=== PATIENT | male | born 1995 | race African-American/Black ===

== ENCOUNTER 2019-04-03 19:46 | Emergency (ER) | payer SELFPAY ==
[~2019-04-03] VITALS: Ht 185.4 cm; Wt 88.5 kg
[2019-04-03 20:01] VITALS: BP 142/81
--- NOTE | 2019-04-03 20:11 | NUR ---
PER ER PA, WILL HOLD STREP SWAB
== END 2019-04-03 21:42 | disposition home or self-care (01) ==
LOC: ER 19:46
DX: J30.9 Allergic rhinitis, unspecified (principal); Z98.890 Other specified postprocedural states; Z60.2 Problems related to living alone
CPT/HCPCS: 70360-TC

== ENCOUNTER → 2022-03-08 | Emergency (ER) | payer OTHER ==
[~2022-03-08] VITALS: Ht 182.9 cm; Wt 93.0 kg
[~2022-03-08] MED LIST: CARI350T PO
--- NOTE | 2022-03-08 14:58 | NUR ---
SEEN AND EXAMINED BY .
[2022-03-08 15:21] LABS: BASOPHILS % (AUTO) 0.8 % (0.0-2.0); HEMATOCRIT 46 % (39-51); HEMOGLOBIN 15.3 g/dL (13.5-17.5); LYMPHOCYTES # (AUTO) 1.6 K/uL (0.8-4.8); MEAN CORPUSCULAR HGB CONC 33 g/dl (31.0-36.0); MEAN CORPUSCULAR VOLUME 94 fL (80-96); MONOCYTES # (AUTO) 0.4 K/uL (0.1-1.30); MONOCYTES % (AUTO) 8.7 % (2.0-12.0); NEUTROPHILS # (AUTO) 2.5 K/uL (1.8-8.9); NEUTROPHILS % (AUTO) 54.5 % (43.0-81.0); PLATELET COUNT (AUTO) 184 K/uL (150-450); RED BLOOD CELL COUNT(AUTO) 4.88 MIL/uL (4.5-6.0); WHITE BLOOD COUNT (AUTO) 4.7 K/uL (4.3-11.0)
[2022-03-08 16:03] LABS: CALCIUM, SERUM 8.8 mg/dL (8.5-10.1); CARBON DIOXIDE 28 mmol/L (21-32); CHLORIDE 106 mmol/L (98-107); CREATININE 1.3 mg/dL (0.6-1.3); GLUCOSE 84 mg/dL (74-106); POTASSIUM 4.4 mmol/L (3.5-5.1); SODIUM SERUM 140 mmol/L (136-145); UREA NITROGEN, BLOOD 17 mg/dL (7-18)
[2022-03-08 17:50] VITALS: BP 134/80
--- NOTE | 2022-03-08 17:50 | NUR ---
Patient discharged to home in stable condition. RX,Written and verbal after care instructions given. Patient verbalizes understanding of instruction.IV removed. Catheter intact and site benign. Pressure and 4x4 applied to site. No bleeding noted.
== END | disposition home or self-care (01) ==
LOC: ER 14:40
DX: R07.89 Other chest pain (principal); Z79.899 Other long term (current) drug therapy
CPT/HCPCS: 36415; 71045-TC; 80048-TC; 84484-TC; 85025-TC

== ENCOUNTER 2025-09-01 23:28 | Emergency (ER) | payer OTHER | END 2025-09-02 01:05 | disposition left against medical advice (07) | LOC: ER 23:31 | DX: R50.9 Fever, unspecified (principal); R09.81 Nasal congestion; Z53.21 Procedure and treatment not carried out due to patient leaving prior to being seen by health care provider ==

== ENCOUNTER → 2025-09-01 | Emergency (ER) | payer OTHER | END | disposition left against medical advice (07) | LOC: ER 16:30 | DX: R53.1 Weakness (principal); R68.83 Chills (without fever); Z53.21 Procedure and treatment not carried out due to patient leaving prior to being seen by health care provider ==